=== PATIENT | female | born 1945 | race Caucasian/White ===

== ENCOUNTER 2018-09-01 10:49 | Emergency (ER) | payer MEDICARE ==
[~2018-09-01] VITALS: Ht 160 cm; Wt 70.0 kg
[2018-09-01] MEDS ORDERED: LISINOPRIL20 MG PO (11:27)
[2018-09-01 11:28] LABS: HEMATOCRIT 42.5 % (37.0-47.0); HEMOGLOBIN 14.2 g/dl (12.0-16.0); IMMATURE GRANULOCYTES 0.4 % (0.0-5.0); MEAN CELL VOLUME 90.4 fL CALC (80.0-100.0); MEAN CORPUSCULAR HGB 30.2 pG CALC (26.0-32.0); MEAN CORPUSCULAR HGB CONC 33.4 g/L CALC (32.0-36.0); NEUT# 5.21 thou/uL (2.00-7.15); RED BLOOD COUNT 4.7 mill/uL (4.20-5.60); RED CELL DISTRI WIDTH 12.6 % (11.5-15.5)
[2018-09-01] MEDS ORDERED: ASPIRIN81 MG PO (11:28)
[2018-09-01] MEDS ORDERED: LIPITOR20 M1 PO (11:28)
[2018-09-01] MEDS ORDERED: RA OMEPRAZOLE20 MG PO (11:28)
[2018-09-01] MEDS ORDERED: METOPROL TAR25 MG PO (11:29)
[2018-09-01 11:48] LABS: ALBUMIN 4.3 g/dL (3.2-5.0); ALKALINE PHOSPHATASE 72 u/l (38-126); ANION GAP 15 (6-22 (CALC)); BILIRUBIN, TOTAL 0.6 mg/dL (0.0-1.4); BUN 16 mg/dL (8-23); BUN/CREATININE RATIO 24 (12-20 (CALC)); CARBON DIOXIDE 26 mmol/l (22-30); CHLORIDE 98 mmol/l (95-108); CREATININE 0.7 mg/dL (0.5-1.0); GFR > 60 ML/MIN (>=60 (CALC)); GFR FOR AFR.AMER. > 60 ML/MIN (>=60 (CALC)); POTASSIUM 3.8 mmol/l (3.5-5.1); SGOT/AST 29 u/l (9-36); SODIUM 135 mmol/l (137-146); TOTAL PROTEIN 7.1 g/dL (6.3-8.2)
[2018-09-01] MEDS ORDERED: TORADOL PO (13:28)
[2018-09-01] MEDS ORDERED: PERCOCET 5/321 COMBO PO (13:28)
[2018-09-01] MEDS ORDERED: MEDDOSEPAK PO (13:28)
[2018-09-01 13:41] VITALS: BP 146/74
== END 2018-09-01 13:41 | disposition home or self-care (01) ==
LOC: ED 10:49
PROVIDERS: Emergency Medicine
DX: M25.551 Pain in right hip (principal); M16.0 Bilateral primary osteoarthritis of hip; M47.816 Spondylosis without myelopathy or radiculopathy, lumbar region; M70.61 Trochanteric bursitis, right hip